=== PATIENT | male | born 1965 | race Two or more races ===

== ENCOUNTER 2021-05-09 17:42 | Inpatient (IN) | payer MEDICARE, MEDICAID ==
[~2021-05-09] VITALS: Ht 177.8 cm; Wt 65.0 kg
[2021-05-09] MEDS ORDERED: PANTOPRAZOLE 40 MG/10 ML VIAL INJ IV ONE (18:30)
[2021-05-09] MEDS ORDERED: ONDANSETRON HCL 4 MG/2 ML VIAL IV ONE (18:30)
[2021-05-09] MEDS ORDERED: MORPHINE SULFATE 4 MG/ML SYR/VIAL IV ONE (18:30)
[2021-05-09] MEDS ORDERED: SODIUM CHLORIDE 0.9% 1,000 ML IVB ONE (18:30)
[2021-05-09 19:22] LABS: Basophils # (auto) 0 10 ^3/uL (0-0.2); Basophils % (auto) 0.3 % (0.0-2.0); Eosinophils # (auto) 0 10 ^3/uL (0-0.8); Eosinophils % (auto) 0.1 % (0.0-7.0); Hematocrit 46.5 % (41.0-53.0); Hemoglobin 16.1 g/dL (13.5-17.5); Lymphocytes # (auto) 0.8 10 ^3/uL (0.4-5.4); Lymphocytes % (auto) 8.2 % (10.0-50.0); Mean Corpuscular Hemoglobin 30.4 pg (28.0-32.0); Mean Corpuscular Hgb Conc. 34.7 g/dL (32.0-36.0); Mean Corpuscular Volume 87.5 fL (80.0-100.0); Monocytes # (auto) 0.5 10 ^3/uL (0-1.3); Monocytes % (auto) 5.7 % (0.0-12.0); Neutrophils % (auto) 85.7 % (37.0-80.0); Red Blood Cells 5.31 10^6/uL (4.5-5.90); Red Cell Distribution Width 13.3 % (11.8-14.3); White Blood Cell 9.4 10^3/uL (4.4-10.8)
[2021-05-09 19:44] LABS: Albumin 3.9 g/dL (3.4-5.0); Calcium 9.4 mg/dL (8.5-10.1); Potassium 3.6 mmol/L (3.5-5.1)
[2021-05-09 19:49] LABS: BUN/Creatinine Ratio 11.5
[2021-05-09 19:50] LABS: Bilirubin, Total 4.7 mg/dL (0.2-1.0); Total Protein 7.2 g/dL (6.4-8.2)
[2021-05-09] MEDS ORDERED: MORPHINE SULFATE INJECTION 2 MG/ML SYRG IV PRN (23:45)
[2021-05-09] MEDS ORDERED: MORPHINE SULFATE 4 MG/ML SYR/VIAL IV PRN (23:45)
[2021-05-09] MEDS ORDERED: clonazePAM 0.5 MG TAB PO ONE (23:45)
[2021-05-09] MEDS ORDERED: NITROGLYCERIN 0.4 MG SL TAB SL PRN (23:45)
[2021-05-10] VITALS (7 sets, daily range): BP systolic 95–139; BP diastolic 50–75
[2021-05-10] MEDS ORDERED: hydrALAZINE HCL 20 MG/ML VL IV PRN (00:30)
[2021-05-10] MEDS: SODIUM CHLORIDE 0.9% 1,000 ML IV SCH ×2 (00:43→08:05)
[2021-05-10 01:57] LABS: Urine Bacteria NONE SEEN /hpf (None Seen); Urine Blood Negative /uL (Negative); Urine Specific Gravity 1.004 (1.001-1.035); Urine WBC <1 /hpf (0 - 3)
[2021-05-10] MEDS: clonazePAM 0.5 MG TAB PO PRN (06:50)
[2021-05-10] MEDS: FAMOTIDINE (10MG/ML) 2ML VL IV SCH (09:33)
[2021-05-10 09:49] LABS: Basophils # (auto) 0 10 ^3/uL (0-0.2); Basophils % (auto) 0.7 % (0.0-2.0); Eosinophils # (auto) 0.1 10 ^3/uL (0-0.8); Hematocrit 43.7 % (41.0-53.0); Hemoglobin 15.6 g/dL (13.5-17.5); Lymphocytes % (auto) 20.7 % (10.0-50.0); Mean Corpuscular Hemoglobin 31.2 pg (28.0-32.0); Mean Corpuscular Hgb Conc. 35.6 g/dL (32.0-36.0); Mean Corpuscular Volume 87.7 fL (80.0-100.0); Monocytes # (auto) 0.3 10 ^3/uL (0-1.3); Monocytes % (auto) 5.7 % (0.0-12.0); Neutrophils # (auto) 3.3 10 ^3/uL (1.6-8.6); Neutrophils % (auto) 70.9 % (37.0-80.0); Nucleated Red Blood Cells % 0.1 %; Red Blood Cells 4.99 10^6/uL (4.5-5.90); Red Cell Distribution Width 13.4 % (11.8-14.3); White Blood Cell 4.7 10^3/uL (4.4-10.8)
[2021-05-10] MEDS ORDERED: ENOXAPARIN SOD 40 MG/0.4 ML SYRINGE SC SCH (10:00)
[2021-05-10 10:32] LABS: Potassium 4.1 mmol/L (3.5-5.1)
[2021-05-10 10:41] LABS: Albumin 3.5 g/dL (3.4-5.0); BUN/Creatinine Ratio 7.5; Calcium 9.1 mg/dL (8.5-10.1); Total Protein 6.5 g/dL (6.4-8.2)
[2021-05-10] MEDS ORDERED: cefTRIAXone 1GM/50ML D5W 50 ML IV ONE (13:00)
[2021-05-10] MEDS: D5W/SOD CHLO 0.9% 1,000 ML IV SCH (13:18)
[2021-05-10] MEDS: metroNIDAZOLE 500MG/100ML 100 ML IV SCH ×2 (14:00→21:47)
[2021-05-10] MEDS: LORazepam 2MG/ML-1ML VIAL IV PRN (14:46)
[2021-05-10 17:30] LABS: INR 1.16 (0.9-1.15); Partial Thromboplastin Time 33.2 sec (23.6-33.0)
[2021-05-11] VITALS (9 sets, daily range): BP systolic 101–141; BP diastolic 57–83
[2021-05-11] MEDS: D5W/SOD CHLO 0.9% 1,000 ML IV SCH ×2 (01:50→10:20)
[2021-05-11] MEDS: metroNIDAZOLE 500MG/100ML 100 ML IV SCH ×3 (05:29→22:03)
[2021-05-11] MEDS: LORazepam 2MG/ML-1ML VIAL IV PRN (06:46)
[2021-05-11] MEDS: cefTRIAXone 1GM/50ML D5W 50 ML IV SCH (09:00)
[2021-05-11] MEDS: FAMOTIDINE (10MG/ML) 2ML VL IV SCH (10:20)
[2021-05-11] MEDS ORDERED: IOHEXOL 350 MG/ML 100ML IJ ONE (13:31)
[2021-05-11] MEDS ORDERED: LIDOCAINE 2%HCL (LOCAL ANESTH.) INJ 20ML MDV ONE ×2 (13:31→15:33)
[2021-05-11] MEDS ORDERED: MIDAZOLAM HCL 2MG/2ML 2ml VIAL (1mg/ml) ONE (13:49)
[2021-05-11] MEDS ORDERED: fentaNYL CITRATE 100 MCG/2 ML VL ONE (13:49)
[2021-05-11] MEDS ORDERED: KETOROLAC TROMETH 60MG/2ML VIAL IM ONE (14:45)
[2021-05-11] MEDS ORDERED: diphenhdrAMINE HCL 50 MG/1 ML VL ONE (15:47)
[2021-05-11 16:37] LABS: Hepatitis A Ab IgM Negative; Hepatitis B Core IgM Negative; Hepatitis C Antibody Negative (Negative)
[2021-05-12] MEDS: clonazePAM 0.5 MG TAB PO PRN ×2 (00:11→19:34)
[2021-05-12] MEDS: D5W/SOD CHLO 0.9% 1,000 ML IV SCH ×3 (04:30→19:50)
[2021-05-12 05:00] VITALS: BP 101/59
[2021-05-12] MEDS: metroNIDAZOLE 500MG/100ML 100 ML IV SCH ×3 (06:08→22:10)
[2021-05-12] MEDS: LORazepam 2MG/ML-1ML VIAL IV PRN (06:11)
[2021-05-12] MEDS ORDERED: SUCCINYLCHOLINE CHLORIDE 20 MG/ML 10ML VIAL IV ONE (07:04)
[2021-05-12] MEDS ORDERED: fentaNYL CITRATE 100 MCG/2 ML VL ONE ×2 (07:05→09:47)
[2021-05-12] MEDS ORDERED: MIDAZOLAM HCL 2MG/2ML 2ml VIAL (1mg/ml) ONE (07:08)
[2021-05-12] MEDS ORDERED: BUPIVACAINE HCL 50 ML ONE (07:11)
[2021-05-12] MEDS ORDERED: ceFAZolin 1GM/50ML 100 ML IV ONE (07:35)
[2021-05-12] MEDS ORDERED: PROPOFOL 10 MG/ML 20 ML IV ONE (07:36)
[2021-05-12] MEDS ORDERED: ROCURONIUM 10MG/ML 10ML VIAL IV ONE (07:37)
[2021-05-12] MEDS ORDERED: IOHEXOL 300 MG/ML 100ML BOTTLE IJ ONE (07:43)
[2021-05-12] MEDS: cefTRIAXone 1GM/50ML D5W 50 ML IV SCH (09:00)
[2021-05-12] MEDS ORDERED: ALBUMIN 25% 0 ML IV ONE (09:20)
[2021-05-12] MEDS ORDERED: ALBUMIN 5% 250 ML IV ONE (09:22)
[2021-05-12] MEDS ORDERED: ONDANSETRON HCL 4 MG/2 ML VIAL ONE (09:35)
[2021-05-12] MEDS ORDERED: NEOSTIGMINE 1 MG/ML INJ (10mg/10ML VIAL) ONE (09:44)
[2021-05-12] MEDS ORDERED: GLYCOPYRROLATE 0.2 MG/ML 1ML VIAL ONE (09:44)
[2021-05-12] MEDS ORDERED: MIDAZOLAM HCL 2MG/2ML 2ml VIAL (1mg/ml) IV PRN (10:45)
[2021-05-12] MEDS ORDERED: METOCLOPRAMIDE HCL 5MG/ml INJ 2ml VIAL IV PRN (10:45)
[2021-05-12] MEDS ORDERED: HYDROmorphone HCL 2 MG/ML VL ONE (11:00)
[2021-05-12] MEDS: HYDROmorphone HCL 2 MG/ML VL IV PRN ×5 (11:01→11:48)
[2021-05-12 13:00] VITALS: BP 128/56
[2021-05-12] MEDS: FAMOTIDINE (10MG/ML) 2ML VL IV SCH (15:54)
[2021-05-12 17:00] VITALS: BP 124/61
[2021-05-12] MEDS: ONDANSETRON HCL 4 MG/2 ML VIAL IV PRN (19:35)
[2021-05-12 20:00] VITALS: BP_SYST 58
[2021-05-13] MEDS: metroNIDAZOLE 500MG/100ML 100 ML IV SCH ×3 (05:44→21:12)
[2021-05-13 06:00] VITALS: BP 111/65
[2021-05-13 08:00] VITALS: BP 117/65
[2021-05-13 08:38] LABS: Potassium 3.6 mmol/L (3.5-5.1)
[2021-05-13 08:46] LABS: Albumin 2.8 g/dL (3.4-5.0); BUN/Creatinine Ratio 14.5; Calcium 8.3 mg/dL (8.5-10.1)
[2021-05-13] MEDS: cefTRIAXone 1GM/50ML D5W 50 ML IV SCH (08:51)
[2021-05-13] MEDS: FAMOTIDINE (10MG/ML) 2ML VL IV SCH (08:51)
[2021-05-13 09:00] VITALS: BP 117/65
[2021-05-13 09:20] LABS: Basophils # (auto) 0 10 ^3/uL (0-0.2); Basophils % (auto) 0.3 % (0.0-2.0); Eosinophils # (auto) 0 10 ^3/uL (0-0.8); Eosinophils % (auto) 0.4 % (0.0-7.0); Hematocrit 36.9 % (41.0-53.0); Hemoglobin 13.1 g/dL (13.5-17.5); Lymphocytes # (auto) 0.8 10 ^3/uL (0.4-5.4); Lymphocytes % (auto) 12.2 % (10.0-50.0); Mean Corpuscular Hemoglobin 31.2 pg (28.0-32.0); Mean Corpuscular Hgb Conc. 35.6 g/dL (32.0-36.0); Mean Corpuscular Volume 87.7 fL (80.0-100.0); Monocytes # (auto) 0.5 10 ^3/uL (0-1.3); Monocytes % (auto) 7.6 % (0.0-12.0); Neutrophils # (auto) 5.3 10 ^3/uL (1.6-8.6); Neutrophils % (auto) 79.5 % (37.0-80.0); Nucleated Red Blood Cells % 0.1 %; Red Cell Distribution Width 13.6 % (11.8-14.3); White Blood Cell 6.7 10^3/uL (4.4-10.8)
[2021-05-13] MEDS: clonazePAM 0.5 MG TAB PO PRN ×2 (09:23→21:13)
[2021-05-13] MEDS: D5W/SOD CHLO 0.9% 1,000 ML IV SCH (09:50)
[2021-05-13 13:00] VITALS: BP 123/69
[2021-05-13] MEDS: MORPHINE SULFATE INJECTION 2 MG/ML SYRG IV PRN (14:51)
[2021-05-13 17:24] VITALS: BP 141/82
[2021-05-13] MEDS: HYDROcodone-ACET 5/325MG TAB PO PRN (17:36)
[2021-05-13 22:00] VITALS: BP 121/74
[2021-05-14] MEDS: ONDANSETRON HCL 4 MG/2 ML VIAL IV PRN (02:18)
[2021-05-14] MEDS: MORPHINE SULFATE INJECTION 2 MG/ML SYRG IV PRN (02:18)
[2021-05-14 04:53] VITALS: BP 128/75
[2021-05-14] MEDS: clonazePAM 0.5 MG TAB PO PRN ×3 (05:05→18:54)
[2021-05-14] MEDS: metroNIDAZOLE 500MG/100ML 100 ML IV SCH ×2 (06:06→14:00)
[2021-05-14 06:16] LABS: Potassium 3.6 mmol/L (3.5-5.1)
[2021-05-14 06:27] LABS: Albumin 2.7 g/dL (3.4-5.0); BUN/Creatinine Ratio 20.5; Bilirubin, Total 0.9 mg/dL (0.2-1.0); Calcium 8.3 mg/dL (8.5-10.1); Total Protein 5.2 g/dL (6.4-8.2)
[2021-05-14] MEDS: cefTRIAXone 1GM/50ML D5W 50 ML IV SCH (09:00)
[2021-05-14 09:05] VITALS: BP 112/63
[2021-05-14] MEDS: FAMOTIDINE (10MG/ML) 2ML VL IV SCH (10:00)
[2021-05-14] MEDS: HYDROcodone-ACET 5/325MG TAB PO PRN ×2 (10:10→18:58)
[2021-05-14] MEDS ORDERED: ONDA-144 PO (11:28)
[2021-05-14] MEDS ORDERED: METR500T PO (11:28)
[2021-05-14 12:45] VITALS: BP 123/74
[2021-05-14] MEDS ORDERED: TAMSULOSIN HYDROCHLORIDE 0.4 MG CAP PO ONE (14:45)
[2021-05-14 17:00] VITALS: BP 121/72
== END 2021-05-14 22:05 | disposition left against medical advice (07) | DRG 409 ==
LOC: ER 17:42 → OVERFLOW 23:40 → WEST WING 05-10 01:30
PROVIDERS: ADMIT Internal Medicine; ATTEND Internal Medicine Nephrology
PROC: 0FC90ZZ Extirpation of Matter from Common Bile Duct, Open Approach (ICD-10-PCS; 2021-05-09)
PROC: BF12YZZ Fluoroscopy of Gallbladder using Other Contrast (ICD-10-PCS; 2021-05-11)
PROC: BF10YZZ Fluoroscopy of Bile Ducts using Other Contrast (ICD-10-PCS; 2021-05-12)
PROC: 0FJB0ZZ Inspection of Hepatobiliary Duct, Open Approach (ICD-10-PCS; principal; 2021-05-12 07:47)
DX: K80.66 Calculus of gallbladder and bile duct with acute and chronic cholecystitis without obstruction (principal); E87.1 Hypo-osmolality and hyponatremia; F40.00 Agoraphobia, unspecified; I10 Essential (primary) hypertension; R79.89 Other specified abnormal findings of blood chemistry; Z53.29 Procedure and treatment not carried out because of patient's decision for other reasons; R74.01 Elevation of levels of liver transaminase levels; R63.4 Abnormal weight loss; F41.0 Panic disorder [episodic paroxysmal anxiety]; K58.9 Irritable bowel syndrome, unspecified; G89.29 Other chronic pain; M19.90 Unspecified osteoarthritis, unspecified site; Z82.3 Family history of stroke; Z82.49 Family history of ischemic heart disease and other diseases of the circulatory system; Z80.0 Family history of malignant neoplasm of digestive organs; Z83.3 Family history of diabetes mellitus; Z68.23 Body mass index [BMI] 23.0-23.9, adult
CPT/HCPCS: 36415; 71045; 74181; 74300; 74328; 76705; 76942; 80053; 80074; 81001; 82150; 82247; 83690; 85025; 85610; 85730; 86850; 86900; 86901; 87040; 93005; 96361; 96374; 96375; 99152; 99153; C1729; C9113; G0378; J0330; J0690; J0696; J1885; J2250; J2405; J2704; J3490; J7042